=== PATIENT | female | born 1990 | race Two or more races ===

== ENCOUNTER 2024-04-22 10:46 | Emergency (ER) | payer BC, OTHER ==
[2024-04-22 10:57] VITALS: BP 118/79; PULSE 73; RESP 20; TEMP 97.9; BMI 39.4
[2024-04-22 11:56] LABS: THROAT:GRP A STREP NOT DETECTED (NOTDETECTED)
[2024-04-22 13:30] LABS: HIV INTERPRETATION NEGATIVE (NEGATIVE)
== END 2024-04-22 12:11 | disposition home or self-care (01) ==
LOC: JERFT 10:46
DX: R21 Rash and other nonspecific skin eruption (principal); B34.9 Viral infection, unspecified; R51.9 Headache, unspecified; R68.83 Chills (without fever); R19.7 Diarrhea, unspecified; M79.10 Myalgia, unspecified site; Z20.822 Contact with and (suspected) exposure to COVID-19
CPT/HCPCS: 0241U-QW; 36415; 86803; 87389; 87651; 99283-25